=== PATIENT | female | born 2000 | race Caucasian/White ===

== ENCOUNTER 2022-12-20 18:39 | Emergency (ER) | payer OTHER, SELFPAY ==
[2022-12-20 18:50] VITALS: BP 190/103; PULSE 85; RESP 22; TEMP 36.8; O2SAT 100; BMI 45.6
--- NOTE | 2022-12-20 19:02 | PC.NURSE ---
pt states she has not traveled- long car rides or air travel recently.
[2022-12-20 19:14] VITALS: BP 152/88; PULSE 75; RESP 18; O2SAT 100
[2022-12-20] MEDS: 0.9 % SODIUM CHLORIDE 500 ML 500 ML IV (19:29)
[2022-12-20] MEDS: MORPHINE 4 MG/ML INJ IVP (19:30)
[2022-12-20 19:31] VITALS: O2SAT 100
[2022-12-20] MEDS: ONDANSETRON 2 MG/ML inj 4 MG IVP (19:45)
--- NOTE | 2022-12-20 19:50 | ED_ITS ---
HPI - General Adult General Date Seen: 12/20/22 Chief complaint: Chest Pain Stated complaint: chest pain Time Seen by Provider: 12/20/22 18:51 Source: patient Mode of arrival: ambulatory Limitations: no limitations History of Present Illness HPI narrative: Patient is a 22-year-old young woman who presents for evaluation of chest pain. She says that she was doing some light work at her job, nothing strenuous when she developed sudden onset of moderate to severe pain in her left chest which radiates straight back to the area by her left shoulder blade. She describes it as sharp and not otherwise radiating. She does not feel short of breath although it does somewhat hurt to breathe. She does feel somewhat nauseated, no vomiting or diarrhea. She says her hands and feet are tingly as well. She has never had anything like this and she is worried about it. She has had a little bit of upper respiratory symptoms the past couple of days, no significant fever. She has not had any lower extremity swelling or pain. She has some underlying asthma, mild, denies any other past medical history. She vapes occasionally but she says not often. No significant alcohol use. Denies other drug use. She does not have abdominal pain, she is status post cholecystectomy. Related Data Home Medications Medication Instructions Recorded Confirmed No Known Home Medications 10/19/22 10/19/22 Allergies Allergy/AdvReac Type Severity Reaction Status Date / Time No Known Drug Allergies Allergy Verified 12/20/22 19:14 Review of Systems Status of ROS: Reports: 10 or more systems reviewed and unremarkable except as noted in History and below [facility] Medical History Asthma Surgical History History of cholecystectomy Social History Smoking Status: Never smoker Do you use any of these nicotine containing products: Vaping Products Second hand tobacco smoke exposure: No How often do you have a drink containing alcohol: monthly or less How many standard drinks containing alcohol do you have on a typical day: 1 or 2 How often do you have six or more drinks on one occasion: Less than monthly AUDIT-C Alcohol total score: 2 Non-prescribed substance use: denies use service: No Exam Narrative: Exam Narrative: Vital signs as noted above. In general, an alert, nontoxic young woman. She is tachypneic. Head: Normocephalic, atraumatic. Eyes: Pupils are equal reactive. Extraocular movements are full. Conjunctivae are normal. ENT: Mucous membranes are moist. Neck: Supple without lymphadenopathy. Heart: Regular rate and rhythm. No obvious murmur rub. Lungs: Clear bilaterally. No increased work of breathing, crackles or wheezes. Abdomen: Soft and nontender. Exam somewhat limited by body habitus. Extremities: Well perfused. No edema. No calf tenderness. Pulses intact in bilateral upper and lower extremities. Neurologic: Patient is alert and oriented to person and place. Speech is fluent. Face is symmetric. Moves all extremities equally. Affect: Normal. Skin: Warm and dry. Well perfused. Const: Vital Signs, click to edit/add: Vital Signs - 24 hr 12/20/22 18:50 12/20/22 19:14 12/20/22 19:31 Temperature 98.2 F Pulse Rate [Pulse Oximeter] 85 75 Respiratory Rate 22 18 Blood Pressure [Ri ght Upper Arm] 190/103 H 152/88 H Pulse Oximetry 100 100 100 Oxygen Delivery Me thod Room Air Room Air 12/20/22 21:39 Temperature 98.4 F Pulse Rate [Pulse Oximeter] 78 Respiratory Rate 16 Blood Pressure [Ri ght Upper Arm] 129/70 Pulse Oximetry 98 Oxygen Delivery Me thod Room Air Documenting provider has reviewed patient's vital signs: yes Course Course Hospital Course: On arrival, patient was maintained on monitor and oximetry. Initially, she was evaluated, an IV was placed, and I looked with the bedside ultrasound. Her BMI is 45 and she has significant breast tissue so images were somewhat challenging, but I did not see a significantly enlarged right ventricle, pericardial effusion, or evidence of significantly decreased ejection fraction. She had an EKG which by my review showed a normal sinus rhythm, ventricular rate of 63. She did not have any acute ST segment changes. No evidence of an S1 Q3 T3. She had 4 mg of morphine which unfortunately was followed quickly thereafter by some vomiting. She received some Zofran. I also ordered 500 mL normal saline. Differential diagnosis includes acute coronary syndrome, PE, pneumonia, dissection, pneumothorax, pancreatitis, esophagitis, esophageal perforation, among others. At this time, I am awaiting some other labs before deciding on a choice of imaging. She was markedly hypertensive on arrival, 190/103, but her blood pressure rapidly declined to 152/88 without any intervention. She is young and in a demographic that I would not consider high risk for dissection. Therefore, I have elected to see how labs look prior to ordering imaging. Her pain is significantly improved after morphine. Blood pressure has resolved to 112 systolic. Pain is improved. D-dimer is less than 0.27, and I think this helps to rule out PE. My suspicion for dissection is quite low given that her hypertension is completely resolved and D-dimer is negative. I did do a chest x-ray in this by my review is negative, final radiology review is likewise negative. Troponin is 0 x 2. She is low risk for coronary artery disease/acute coronary syndrome. LFTs and lipase are negative, she did not have abdominal tenderness, she is status post cholecystectomy and I think the likelihood of choledocholithiasis, pancreatitis, hepatitis is extremely low. Etiology of her symptoms at this time is unknown. I have discussed with her that I do not have a clear answer but I think we have effectively ruled out concerning causes for her chest pain. Would recommend use of ibuprofen or Tylenol as needed. If she has severe worsening symptoms return, otherwise primary care follow-up if needed over the next couple of days for persistent symptoms. Vital Signs Vital signs: Initial Vital Signs Temperature 98.2 F 12/20/22 18:50 Temperature Source Temporal Artery Scan 12/20/22 18:50 Pulse Rate 85 12/20/22 18:50 Pulse Rhythm 12/20/22 18:50 Respiratory Rate 22 12/20/22 18:50 Blood Pressure 190/103 H 12/20/22 18:50 Blood Pressure Mean 132 12/20/22 18:50 Pulse Oximetry 100 12/20/22 18:50 Oxygen Delivery Method 12/20/22 18:50 Vital Signs Temperature 98.2 F 12/20/22 18:50 Pulse Rate 85 12/20/22 18:50 Respiratory Rate 22 12/20/22 18:50 Blood Pressure 190/103 H 12/20/22 18:50 Pulse Oximetry 100 12/20/22 18:50 Oxygen Delivery Method 12/20/22 18:50 Temperature 98.4 F 12/20/22 21:39 Pulse Rate 78 12/20/22 21:39 Respiratory Rate 16 12/20/22 21:39 Blood Pressure 129/70 12/20/22 21:39 Pulse Oximetry 98 12/20/22 21:39 Oxygen Delivery Method 12/20/22 21:39 Medical Decision Making Lab Data Labs: Lab Results 12/20/22 12/20/22 12/20/22 Range/Units 19:31 19:31 19:31 WBC 10.04 (4.50-11.00) K/uL RBC 4.81 (4.00-5.20) m/uL Hgb 12.7 (12.0-16.0) gm/dL Hct 39.4 (33.0-51.0) % MCV 82 (80-100) fL MCH 26 (26-34) pg MCHC 32 (32-36) gm/dL RDW Coeff of Piper 12.9 (11.5-15.5) % Plt Count 351 (140-440) K/uL Neut % (Auto) 61.1 (42.0-72.0) % Lymph % (Auto) 28.1 (20-44) % Victoria % (Auto) 6.2 (0.0-11.0) % Eos % (Auto) 4.2 (0.0-7.0) % Baso % (Auto) 0.3 (0.0-3.0) % Neut # (Auto) 6.14 (1.7-7.0) K/uL Lymph # (Auto) 2.82 (0.90-2.90) K/uL Victoria # (Auto) 0.60 (0.00-0.90) K/UL Eos # (Auto) 0.42 (0.00-0.50) K/uL Baso # (Auto) 0.03 (0.00-0.30) K/uL D-Dimer Quant (PE/DVT) < 0.27 (0.00-0.50) ug/ml Sodium 139 (135-149) mmol/L Potassium 3.5 L (3.6-5.1) mmol/L Chloride 107 (96-114) mmol/L Carbon Dioxide 27 (20-32) mmol/L BUN 10 (5-24) mg/dL Creatinine 0.6 (0.5-1.5) mg/dL Estimated Creat Clear 156.34 Estimated GFR 128 ml/min Glucose 95 (60-115) mg/dL Calcium 9.0 (8.4-10.6) mg/dL Total Bilirubin 0.6 (0.1-1.5) mg/dL Direct Bilirubin 0.2 (0.0-0.5) mg/dL AST 30 (12-35) U/L ALT 26 (4-35) U/L Alkaline Phosphatase 107 (40-150) U/L C-Reactive Protein 1.9 H (0.5-1.0) mg/dL Total Protein 7.4 (6.0-8.3) g/dL Albumin 4.2 (3.3-5.0) g/dL Lipase 57 (23-300) U/L POC Troponin I (0.01-0.04) ng/ml 12/20/22 12/20/22 12/20/22 Range/Units 19:31 19:31 22:09 WBC (4.50-11.00) K/uL RBC (4.00-5.20) m/uL Hgb (12.0-16.0) gm/dL Hct (33.0-51.0) % MCV (80-100) fL MCH (26-34) pg MCHC (32-36) gm/dL RDW Coeff of Piper (11.5-15.5) % Plt Count (140-440) K/uL Neut % (Auto) (42.0-72.0) % Lymph % (Auto) (20-44) % Victoria % (Auto) (0.0-11.0) % Eos % (Auto) (0.0-7.0) % Baso % (Auto) (0.0-3.0) % Neut # (Auto) (1.7-7.0) K/uL Lymph # (Auto) (0.90-2.90) K/uL Victoria # (Auto) (0.00-0.90) K/UL Eos # (Auto) (0.00-0.50) K/uL Baso # (Auto) (0.00-0.30) K/uL D-Dimer Quant (PE/DVT) (0.00-0.50) ug/ml Sodium (135-149) mmol/L Potassium (3.6-5.1) mmol/L Chloride (96-114) mmol/L Carbon Dioxide (20-32) mmol/L BUN (5-24) mg/dL Creatinine (0.5-1.5) mg/dL Estimated Creat Clear Estimated GFR ml/min Glucose (60-115) mg/dL Calcium (8.4-10.6) mg/dL Total Bilirubin Cancelled (0.1-1.5) mg/dL Direct Bilirubin Cancelled (0.0-0.5) mg/dL AST Cancelled (12-35) U/L ALT Cancelled (4-35) U/L Alkaline Phosphatase Cancelled (40-150) U/L C-Reactive Protein (0.5-1.0) mg/dL Total Protein Cancelled (6.0-8.3) g/dL Albumin Cancelled (3.3-5.0) g/dL Lipase Cancelled (23-300) U/L POC Troponin I 0.00 L 0.00 L (0.01-0.04) ng/ml Discharge Plan Discharge Clinical Impression: Chest pain Patient Disposition: Home, Self-Care Condition: Improved Instructions: Chest Pain (ED) Additional Instructions: Your workup tonight has been reassuring. Labs to check your heart and lungs as well as her x-ray were normal. You can use medicines like ibuprofen or Tylenol if you need to for ongoing pain. Follow-up with your primary doctor in the next couple of days for recheck. If you have severe pain, new symptoms such as fever, significant shortness of breath, or other worsening, return for re- evaluation. Prescriptions: No Action No Known Home Medications Follow Up/Referrals: Lisa Dawson CNP [Primary Care Provider] - Stand Alone Forms: [employer] Info Instructions
[2022-12-20 19:51] LABS: Basophils Absolute Auto 0.03 K/uL (0.00-0.30); Basophils Percent Auto 0.3 % (0.0-3.0); Eosinophils Absolute Auto 0.42 K/uL (0.00-0.50); Eosinophils Percent Auto 4.2 % (0.0-7.0); Hematocrit 39.4 % (33.0-51.0); Hemoglobin* 12.7 gm/dL (12.0-16.0); Immature Granulocytes Abs Auto 0.01 K/uL (0.00-0.30); Immature Granulocytes Pct Auto 0.1 %; Lymphocytes Absolute Auto 2.82 K/uL (0.90-2.90); Lymphocytes Percent Auto 28.1 % (20-44); Mean Corpuscular HGB Conc 32 gm/dL (32-36); Mean Corpuscular Hemoglobin 26 pg (26-34); Mean Corpuscular Volume 82 fL (80-100); Monocytes Percent Auto 6.2 % (0.0-11.0); Neutrophils Absolute Auto 6.14 K/uL (1.7-7.0); Neutrophils Percent Auto 61.1 % (42.0-72.0); Platelet Count* 351 K/uL (140-440); RDW Coefficient of Variation % 12.9 % (11.5-15.5); Red Blood Count 4.81 m/uL (4.00-5.20); White Blood Count* 10.04 K/uL (4.50-11.00)
[2022-12-20 19:53] LABS: Slide Review Reflex No
--- NOTE | 2022-12-20 19:53 | PC.NURSE ---
pt states chest pain is improving after iv morphine. zofran given for nausea, will continue to assess pt. No further emesis since zofran given. warm blanket given, sister at bedside.
[2022-12-20 20:13] LABS: D Dimer Quantitative* < 0.27 ug/ml (0.00-0.50)
--- NOTE | 2022-12-20 20:20 | CRLHL7_ITS ---
For Patients: As a result of the Century Cures Act, medical imaging exams and procedure reports are released immediately into your electronic medical record. You may view this report before your referring provider. If you have questions, please contact your health care provider. INDICATION: Chest pain. TECHNIQUE: Chest 2 views. COMPARISON: 12/13/17. FINDINGS: Cardiovascular and mediastinum: Heart size and vasculature are normal in caliber and appearance. Lungs and pleural spaces: The lungs are clear. No pleural effusion or pneumothorax. Bones and soft tissues: Unremarkable apart from cholecystectomy clips. IMPRESSION: No evidence of an acute pulmonary process. Dictated by Maikol Wiley MD @ 12/20/2022 10:18:49 PM (Electronically Signed)
[2022-12-20 20:42] LABS: Albumin* 4.2 g/dL (3.3-5.0); Chloride* 107 mmol/L (96-114)
[2022-12-20 20:43] LABS: Potassium* 3.5 mmol/L (3.6-5.1); Sodium* 139 mmol/L (135-149)
[2022-12-20 20:45] LABS: Creatinine* 0.6 mg/dL (0.5-1.5); Est. Creatinine Clearance* 156.34; Estimated Glomerular Filt Rate 128 ml/min
[2022-12-20 20:46] LABS: Alanine Aminotransferase* 26 U/L (4-35); Alkaline Phosphatase* 107 U/L (40-150); Aspartate Amino Transferase* 30 U/L (12-35); Bilirubin Direct* 0.2 mg/dL (0.0-0.5); Bilirubin Total* 0.6 mg/dL (0.1-1.5); Blood Urea Nitrogen* 10 mg/dL (5-24); Carbon Dioxide* 27 mmol/L (20-32); Glucose* 95 mg/dL (60-115); Lipase* 57 U/L (23-300); Total Protein* 7.4 g/dL (6.0-8.3)
[2022-12-20 20:49] LABS: C Reactive Protein* 1.9 mg/dL (0.5-1.0)
[2022-12-20 21:39] VITALS: BP 129/70; PULSE 78; RESP 16; TEMP 36.9; O2SAT 98
--- NOTE | 2022-12-20 21:40 | PC.NURSE ---
Pt resting, states chest pain still 2/10 but able to rest. sitting with sister at bedside. Waiting for chest x-ray.
== END 2022-12-20 22:59 | disposition home or self-care (01) ==
PROVIDERS: Emergency Provider Emergency Medicine; PCP Nurse Practitioner Family
DX: R07.89 Other chest pain (principal)
CPT/HCPCS: 36415; 71046; 80048; 80076; 83690; 84484; 85025; 85379; 86140; 93005; 94761; 96374; 96375; 99284; J2270; J2405; J7120

== ENCOUNTER 2023-12-16 01:48 | Emergency (ER) | payer OTHER, SELFPAY ==
[2023-12-16 01:55] VITALS: BP 148/91; PULSE 80; RESP 20; TEMP 37; O2SAT 95; BMI 42.6
--- NOTE | 2023-12-16 01:55 | ED.GENADULT ---
HPI - General Adult General Chief complaint: Unspecified Complaint, Adult Stated complaint: Bleeding from her belly button. Time Seen by Provider: 12/16/23 01:50 History of Present Illness HPI narrative: Patient is a 23-year-old woman who was scratching inside her belly button tonight and developed some minor bleeding. The bleeding has stopped. She has some minor discomfort but no other abdominal pain she has otherwise been feeling fine. She does admit to having dry skin in her belly button. She has had no fevers no chills no night sweats has otherwise been in her usual state of health. Again pain is minimal. There is no further bleeding the patient is up-to-date on her tetanus shot. Related Data Home Medications Medication Instructions Recorded Confirmed No Known Home Medications 12/16/23 12/16/23 Allergies Allergy/AdvReac Type Severity Reaction Status Date / Time No Known Drug Allergies Allergy Verified 12/16/23 01:55 Review of Systems Status of ROS: Reports: 10 or more systems reviewed and unremarkable except as noted in History and below [facility] Medical History Asthma ?J45.909 - Unspecified asthma, uncomplicated (ICD-10) Surgical History History of cholecystectomy ?Z90.49 - Acquired absence of other specified parts of digestive tract (ICD-10) Social History Smoking Status: Never smoker Do you use any of these nicotine containing products: Vaping Products Second hand tobacco smoke exposure: No How often do you have a drink containing alcohol: monthly or less How many standard drinks containing alcohol do you have on a typical day: 1 or 2 How often do you have six or more drinks on one occasion: Less than monthly AUDIT-C Alcohol total score: 2 Non-prescribed substance use: denies use service: No Exam Narrative: Exam Narrative: EXAM GENERAL: Patient appears comfortable and well. EYES: No scleral icterus. ENT: Tympanic membranes and oropharynx normal. THYROID: no thyroid nodules or thyromegaly. LYMPH: No supraclavicular or cervical lymphadenopathy. SKIN: Visible skin seen during exam normal or with benign process only. EXT: No dependent lower extremity pedal edema. HEART: Regular rate and rhythm with no murmurs, rubs, or gallops. LUNGS: Clear to auscultation bilaterally with no crackles or wheezes. ABD: Soft, non tender, non distended. PSYCH: Good eye contact, speech is not pressured. Examination of her umbilicus is normal with some minor dry skin and minor excoriations. Medical Decision Making MDM Narrative Medical decision making narrative: Patient is a 23-year-old who comes in at 2:00 a.m. in the morning after scratching her belly button and causing some local bleeding. No further bleeding. There is only minimal excoriations. At this time I did provide reassurance I do not believe further workup is indicated. She seems relieved and will follow-up with her regular doctor as needed. Discharge Plan Discharge Clinical Impression: Bleeding Patient Disposition: Home, Self-Care Condition: Stable Additional Instructions: Triple antibiotic or Vaseline as needed Follow-up with your doctor as needed Activity Level: No Restrictions Discharge Diet: Regular Prescriptions: No Action No Known Home Medications Follow Up/Referrals: Lisa Dawson [employer] [Primary Care Provider] - Stand Alone Forms: [employer] Info Instructions
== END 2023-12-16 02:01 | disposition home or self-care (01) ==
PROVIDERS: Emergency Provider Internal Medicine; PCP Nurse Practitioner Family
DX: R23.3 Spontaneous ecchymoses (principal)
CPT/HCPCS: 99282; 99283